=== PATIENT | female | born 1985 | race Two or more races ===

== ENCOUNTER 2024-08-13 15:11 | Outpatient (CLI) | payer OTHER | END 2024-08-13 15:22 | disposition home or self-care (01) | LOC: RAD 15:11 | DX: M79.675 Pain in left toe(s) (principal); S92.492A Other fracture of left great toe, initial encounter for closed fracture; S92.405A Nondisplaced unspecified fracture of left great toe, initial encounter for closed fracture; X58.XXXA Exposure to other specified factors, initial encounter; Y93.9 Activity, unspecified; Y92.9 Unspecified place or not applicable; Y99.9 Unspecified external cause status ==